=== PATIENT | male | born 1940 | race African-American/Black ===

== ENCOUNTER → 2018-03-30 | Outpatient (CLI) | payer OTHER, MEDICARE ==
[2018-03-30] MEDS: LIDOCAINE WITH 8.4% SOD BICARB 3 ML DISP.SYRIN. INJ (14:00)
[2018-03-30] MEDS: IOHEXOL 180 MG/ML 10 ML VIAL. IT (14:00)
== END | disposition home or self-care (01) ==
LOC: RAD 13:20
DX: M47.896 Other spondylosis, lumbar region (principal); N40.0 Benign prostatic hyperplasia without lower urinary tract symptoms; M53.3 Sacrococcygeal disorders, not elsewhere classified; M12.88 Other specific arthropathies, not elsewhere classified, other specified site; M48.061 Spinal stenosis, lumbar region without neurogenic claudication
CPT/HCPCS: 72132; 72265; Q9965

== ENCOUNTER → 2018-05-03 | Outpatient (CLI) | payer MEDICARE, OTHER ==
[2018-03-30 15:43] VITALS: BP 137/69
[~2018-05-03] MED LIST: ASPI81TA50 PO; CALC1TAB75 PO; CHOL10003 PO; FINA5TAB4 PO; LIPITOR80 MG PO; OMEG1CAP27 PO; OMEP20CA9 PO; RAMI5CAP PO; SIMV40TA3 PO; UBID100C26 PO; VITA1TAB19 PO
--- NOTE | 2018-05-03 18:51 | PAIN ---
DATE OF SERVICE: 05/03/2018 CHIEF COMPLAINT: Low back and right lower extremity pain. HISTORY OF PRESENT ILLNESS: The patient is a 78-year-old male who presents with history of pain for about 6 months. No specific injury or action that he is aware of and pain radiating to the right lower extremity, mostly in the lateral aspect of the thigh, anterior thigh, lateral lower leg as well and radiating from the hip into the lower leg. The patient reports it is shooting, constant, sharp, radiating into the right leg, intermittent in intensity, worse with activity, worse with standing, walking, changing positions, better with sitting or lying down, but awakens him about 4 times at night, especially if he lays on his right side. The patient reports it does not affect his bowel or bladder control, but can affect his ability to walk with some minor weakness, but again very minor on the right side. The patient has not had any current physical therapies, any current other treatments. He has had some exercise and therapy done in 2016. He is doing the exercises currently, but it is not helping much. The patient reports he is taking ibuprofen, also Tylenol and muscle relaxers, which seemed to help, but only to temporary extent, maybe 2-3 hours. The patient has had no other treatments at this time. The patient did have an MRI scan of the lumbar spine dated 03/30/2018 showing L4-L5, broad-based posterior disk bulging with mild posterior ligamentous thickening with central spinal canal well preserved, minimal inferior foraminal narrowing bilaterally. L5-S1 shows laminectomy defect on the right. Portion of right facet has been removed with no significant posterior disk bulge, protrusion. Central spinal canal and L5-S1 neural foramina are well maintained as well. Right S1 nerve root sleeve abnormal, dilated proximally. Right S1 nerve root is smaller than the left and displaced laterally with dilating proximal nerve root sleeve. Displacement appears to be related to a non-opacified cystic structure displacing the inferior aspect of the opacified right S1 nerve root sleeve laterally. The patient rates his disability rate from 0-10, 10 being the worst; is a 0 with family home responsibilities, occupation, self-care and life support activities; 2 with recreation and social activity and 3 with sexual behavior. The patient reports no loss of motor function, but significant fatigability with right lower extremity with activity. PAST MEDICAL HISTORY: Significant for hearing loss with bilateral hearing aids, history of hypertension, coronary artery bypass in the past, acid reflux. Other surgery includes benign tumor in the back and laminectomy in the 1980s. CURRENT MEDICATIONS: Include Coenzyme Q10, finasteride, Lipitor, simvastatin, omeprazole, ramipril, aspirin, fish oil, beta complex, calcium, Tylenol and muscle relaxers and vitamin D3. ALLERGIES: The patient has no known drug allergies. FAMILY HISTORY: Significant for cancer. SOCIAL HISTORY: The patient is retired. He is . He smokes. He drinks alcohol 1-2 times a week, drinks coffee daily. Does not use any illegal or illicit drugs or other recreational drugs or substances and lives locally in [place], [place] and is currently retired. REVIEW OF SYSTEMS: Positive for those items mentioned in history of present illness. All systems reviewed and otherwise negative. It is complete, full and well documented on the patient's chart. PHYSICAL EXAMINATION: VITAL SIGNS: The patient's blood pressure is 142/84, pulse 84, respirations 18, temperature is 98.8 degrees Fahrenheit, height is 73 inches, weight is 207 pounds. GENERAL: The patient is awake, alert, oriented, appropriate, very pleasant demeanor. HEENT: Head shows normocephalic, atraumatic. Extraocular movements are intact, symmetrical. Oral cavity: Mucous membranes moist and pink. Dentition is intact. NECK: Shows anterior throat supple without palpable lymphadenopathy noted. Swallow reflex is symmetrical. CHEST: Shows normal with inspection. Breath sounds clear to auscultation bilaterally. HEART: Shows S1, S2 clear. No murmurs auscultated. CHEST: Shows a well-healed surgical scar. ABDOMEN: Soft, nontender, nondistended. No palpable organomegaly is noted. No rebound or guarding demonstrated. BACK: Shows spine grossly in the midline. Normal appearing thoracic kyphosis and lumbar lordotic curvature. Lumbar paraspinous musculature shows symmetrical on inspection with some flattening of the lumbar lordotic curvature. A well-healed surgical scar again noted. The patient has good rotational motion of lumbar spine, both laterally as well as extension and flexion without significant difficulty. No tenderness over the sacrum or sacroiliac regions. LOWER EXTREMITIES: Show deep tendon reflexes at 1+ in the patellar and tendo calcaneus tendons. Motor exam is 5/5 with dorsiflexion, extension, quadriceps and hamstring flexion equal and symmetrical. Peripheral pulses are 1+ posterior tibia. No peripheral edema is noted. The patient's straight leg raise noted to be positive on the right about 40 degrees. Left side is negative. Gaenslen's and Tyrel's maneuvers are negative bilaterally. The patient is able to stand on his toes without significant difficulty or loss of balance, walks with a normal appearing gait, not using any assistive devices to ambulate on his visit today. SKIN: Shows warm and dry, good turgor. No edema. No sores, rashes, or bruises and scars as noted. IMPRESSION: 1. This is a 78-year-old male with approximate 6-month history of increasing pain, low back, right lower extremity in a radicular fashion. 2. MRI scan of lumbar spine as noted. 3. History of coronary artery disease. 4. Hypertension. 5. Hearing loss. PLAN: Options were discussed with the patient including conservative medical management, physical therapy, interventional technique. He would like to pursue interventional techniques. We discussed a transforaminal injection on the right at L4-L5. The patient is interested in pursuing this. We used anatomical models to describe the procedure and risks were discussed. However, the patient has a slight fever this morning and he feels he is getting through a cold, which he would like to give a few more days and we will wait until this is approved afebrile and plan on a right L4-L5 transforaminal injection at that time later this week. The patient understands and agrees, will follow up in approximately 3 days unless severe or gets worse. He will contact the office if that occurs. LIZ TAI MD DR: PAULA/kimberly JOB#: [id number] / [id number] [facility] CenterJazmín GE
== END | disposition home or self-care (01) ==
LOC: PNCL 08:19
PROVIDERS: ATTEND Anesthesiology
DX: M79.605 Pain in left leg (principal); M54.5 Low back pain; I10 Essential (primary) hypertension; H91.93 Unspecified hearing loss, bilateral; Z95.1 Presence of aortocoronary bypass graft
CPT/HCPCS: G0463

== ENCOUNTER → 2018-06-30 | Outpatient (CLI) | payer MEDICARE, OTHER ==
[2018-03-30 15:43] VITALS: BP 137/69
[~2018-06-30] MED LIST changes: +BUPIVACAINE MPF 0.25% 30 ML VIAL. ONE; +IOHEXOL 180 MG/ML 10 ML VIAL. ONE; +LIDOCAINE 1% PF 2 ML VIAL. ONE; -RAMI5CAP PO; +RAMI5CAP50 PO; +methylPREDNISolone ACETATE 80 MG/ML VIAL. ONE
--- NOTE | 2018-06-30 20:38 | PAIN ---
DATE OF SERVICE: 06/30/2018 DIAGNOSES: 1. Lumbar radiculopathy with lumbar degenerative disk disease. 2. Post-lumbar laminectomy syndrome. HISTORY OF PRESENT ILLNESS: The patient is a 78-year-old male who returns for followup status post transforaminal injection on the right L4-L5 x 1. The patient reports about 100% improvement for the first month, now the pain is returning, but only in the upper part of his right leg, is not going down the entire leg as it was. The patient reports otherwise he has been increasing his activity with greater ease and comfort, sleeping better, standing for longer periods, walking greater distances, doing household activities as well as working activities with much greater ease and comfort and traveling without as much difficulty. The patient reports his pain is now in the right lower extremity, radiating to the right lateral thigh, lateral medial thigh, medial knee on the right side, but not in the lower leg below the knee. The patient reports pain is 9 on a scale of 10 at its worst, 7 on average, 4 at its least and is 4 today. The patient reports it is cramping, aching, sharp, radiating; again worse with activity, standing, walking, changing positions but only in the upper part of the leg, it is not in the entire leg as it was previously. The patient reports no new motor or sensory deficits, no new bowel or bladder incontinence or other complaints. PHYSICAL EXAMINATION: VITAL SIGNS: The patient's blood pressure is 148/74, pulse 67, respirations 16, temperature 97.6 degrees Fahrenheit, height is 6 feet 1 inch, weight is 208 pounds. GENERAL: The patient is awake, alert, oriented, appropriate, very pleasant demeanor. HEENT: Head is normocephalic, atraumatic. Extraocular movements intact and symmetrical. Oral cavity: Mucous membranes moist and pink. Dentition is intact. NECK: Shows anterior throat supple without palpable lymphadenopathy noted. Swallow reflex symmetrical. CHEST: Shows normal on inspection. Breath sounds clear to auscultation bilaterally. HEART: Shows S1, S2 clear. No murmurs auscultated. ABDOMEN: Soft, nontender, nondistended. No palpable organomegaly. There is no rebound or guarding demonstrated. BACK: Shows spine grossly in the midline. Normal appearing thoracic kyphosis and some minor flattening of lumbar lordotic curvature. Well-healed surgical scar noted. Lumbar paraspinous muscle shows symmetrical on inspection, with palpation shows some moderate tenderness but only diffusely bilaterally without radiation. EXTREMITIES: The patient's lower extremities show deep tendon reflexes 1+ in the patellar and tendo-calcaneus tendons. Motor exam is strong with 5/5 dorsiflexion, extension, quadriceps and hamstring flexion symmetrical. Peripheral pulses are 1+ posterior tibia. No peripheral edema is noted bilaterally. Options were discussed with the patient. The patient's old chart was reviewed as his current medication regimen updated. Current review of systems updated today as well. We will proceed with a second in a series of lumbar transforaminal injection on the right L4-L5 using fluoroscopic guidance. Risks were again discussed including, but not limited to bleeding, infection, possibility of epidural hematoma, subsequent neurological compromise, dural puncture, headaches, spinal cord and/or nerve damage, side effects of steroid medication, potential injection of the vertebral artery at that level and permanent ischemic damage as well as poor results regarding pain control. The patient understands and wished to proceed. The patient will return to clinic in approximately 2 weeks for followup; was counseled as to return appointment, activity level and side effects to be aware of. DIAGNOSIS: Lumbar radiculopathy with lumbar degenerative disk disease and post-lumbar laminectomy syndrome. PROCEDURE: Right-sided L4-L5 transforaminal injection using C-arm fluoroscopic guidance under sterile prep and drape using local anesthetic. MEDICATION INJECTED: Total of 2 mL of 0.25% bupivacaine, 80 mg Depo-Medrol and 1.5 mL of Isovue for contrast. CONDITION AT DISCHARGE: Stable. The patient tolerated the procedure well, had no complications. LIZ TAI MD DR: PAULA/kimberly JOB#: [id number] / [id number]
== END | disposition home or self-care (01) ==
LOC: PNCL 08:07
PROVIDERS: ATTEND Anesthesiology
DX: M51.16 Intervertebral disc disorders with radiculopathy, lumbar region (principal); M96.1 Postlaminectomy syndrome, not elsewhere classified
CPT/HCPCS: 64483; J1040; J3490; Q9965

== ENCOUNTER → 2018-07-13 | Outpatient (CLI) | payer MEDICARE, OTHER ==
[2018-03-30 15:43] VITALS: BP 137/69
[~2018-07-13] MED LIST changes: +BUPIVACAINE MPF 0.25% 10 ML VIAL. ONE; -BUPIVACAINE MPF 0.25% 30 ML VIAL. ONE; -LIDOCAINE 1% PF 2 ML VIAL. ONE
--- NOTE | 2018-07-13 23:11 | PAIN ---
DATE OF SERVICE: 07/13/2018 PROGRESS NOTE FOR PAIN CLINIC DIAGNOSIS: Lumbar radiculopathy with lumbar degenerative disk disease and post-lumbar laminectomy syndrome. HISTORY OF PRESENT ILLNESS: The patient is a 78-year-old male who returns for followup status post right L4-L5 transforaminal injections x 2. The patient reports the initial one was very good, about 100% improvement for about a month, last one was only about 50% improvement and now down to about 25% improvement in the right leg, not lasting as long as the initial, worse with walking, standing and changing positions, awakens him from night when he lies on his right side with a tingling sensation, mainly in the lateral anterior thigh on the right. The patient reports no new motor or sensory deficits, no new bowel or bladder incontinence or other complaints. Rates his pain as a 9 on a scale of 10 at its worst, 6 on average, 4 at its least and is a 4 today. Describes it as stabbing, tingling, radiating, shooting, again worse at night and with weightbearing. PHYSICAL EXAMINATION: VITAL SIGNS: The patient's blood pressure is 140/77, pulse 59, respirations are 16, temperature 97.4 degrees Fahrenheit. Height is 6 feet 1 inch, weight is 210 pounds. GENERAL: The patient is awake, alert, oriented, appropriate, very pleasant demeanor. HEENT: Head shows normocephalic, atraumatic. Extraocular movements are intact and symmetrical. Oral cavity: Mucous membranes are moist and pink. Dentition is intact. NECK: Shows anterior throat supple without palpable lymphadenopathy noted. Swallow reflex is symmetrical. CHEST: Shows normal on inspection. Breath sounds are clear to auscultation bilaterally. HEART: Shows S1, S2 clear. No murmurs auscultated. ABDOMEN: Soft, nontender, nondistended. No palpable organomegaly is noted. No rebound or guarding demonstrated. BACK: Shows spine grossly in the midline. Normal appearing thoracic kyphosis and some minor flattening of lumbar lordotic curvature with well-healed surgical scar noted in the lumbar distribution. Lumbar paraspinous muscle shows symmetrical on inspection, on palpation shows some moderate tenderness diffusely, more on the right than the left, but only diffusely without radiation. No tenderness with palpation of the sacrum or sacroiliac regions. The patient has good rotational motion of lumbar spine both laterally as well as extension and flexion without difficulty. EXTREMITIES: Lower extremities show deep tendon reflexes 1+ in the patellar and tendo-calcaneus tendons. Motor exam is strong with 5/5 dorsiflexion, extension, quadriceps and hamstring flexion and symmetrical. Peripheral pulses are 1+ posterior tibia. No peripheral edema is noted bilaterally. Options were discussed with the patient. The patient's old chart was reviewed as his current medication regimen updated. Current review of systems updated today as well. We will proceed with a third in the series of right-sided L4-L5 transforaminal injection with fluoroscopic guidance. Risks were again discussed including, but not limited to bleeding, infection, possibility of epidural hematoma, subsequent neurologic compromise, dural puncture, headaches, spinal cord and/or nerve damage, potential injection of the vertebral artery at that level and permanent ischemic damage as well as poor results regarding pain control and side effects of steroid medication. The patient understands and wished to proceed. The patient will return to the clinic in approximately 2 weeks for followup, was counseled on return appointment, activity level and side effects to be aware of. DIAGNOSIS: Lumbar radiculopathy with lumbar degenerative disk disease and post-lumbar laminectomy syndrome. PROCEDURE: Lumbar transforaminal injection at L4-L5 on the right using C-arm fluoroscopic guidance under sterile prep and drape using local anesthetic. MEDICATION INJECTED: A total of 80 mg Depo-Medrol plus 2 mL of 0.25% bupivacaine and 1.5 mL of Isovue for contrast without uptake on digital subtraction films. CONDITION AT DISCHARGE: Stable. The patient tolerated the procedure well, had no complications. LIZ TAI MD DR: PAULA/kimberly JOB#: [id number] / [id number]
== END | disposition home or self-care (01) ==
LOC: PNCL 10:37
PROVIDERS: ATTEND Anesthesiology
DX: M51.16 Intervertebral disc disorders with radiculopathy, lumbar region (principal); Z79.899 Other long term (current) drug therapy; Z79.82 Long term (current) use of aspirin; M96.1 Postlaminectomy syndrome, not elsewhere classified; Z98.890 Other specified postprocedural states
CPT/HCPCS: 64483; J1040; J3490; Q9965

== ENCOUNTER → 2018-10-14 | Outpatient (CLI) | payer MEDICARE, OTHER ==
[2018-03-30 15:43] VITALS: BP 137/69
--- NOTE | 2018-10-14 22:08 | PAIN ---
DATE OF SERVICE: 10/14/2018 PROGRESS NOTE FOR PAIN CLINIC DIAGNOSES: Lumbar radiculopathy with lumbar degenerative disk disease and lumbar post laminectomy syndrome. HISTORY OF PRESENT ILLNESS: The patient is a 78-year-old male who returns for followup status post transforaminal injections x 3, most recently on 07/13/2018. The patient did very well, reports about 50% improvement overall. The pain in his legs is now just in the thigh down into the lower leg. He is increasing his activity, walking, standing, change in positions, doing work activities, household activities, traveling much greater ease and comfort. The patient reports pain now is returning in the right anterior lateral thigh, anterior medial aspect of the right knee, but not below the knee as it was previously. The patient reports it is a 9 on a scale of 10 at its worst, 7 on average, 3 at its least and is a 3 today. The patient reports it is cramping, sharp, radiating, worse with standing, walking, changing positions, but not at all times. The patient reports it is awakening him from sleep about 2-3 times at night in the past month or so. Prior to that, he was doing very well. The patient reports no new motor or sensory deficits, no bowel or bladder incontinence or other complaints. PHYSICAL EXAMINATION: VITAL SIGNS: The patient's blood pressure is 149/67, pulse 61, respirations are 18, temperature is 97.6 degrees Fahrenheit, height is 6 feet 1 inch, weight is 217 pounds. GENERAL: The patient is awake, alert, oriented, appropriate, very pleasant demeanor. HEENT: Head is normocephalic, atraumatic. Extraocular movements intact and symmetrical. Oral cavity: Mucous membranes moist and pink. Dentition is intact. NECK: Shows anterior throat supple without palpable lymphadenopathy noted. Swallow reflex symmetrical. CHEST: Shows normal with inspection. Breath sounds clear to auscultation bilaterally. HEART: Shows S1, S2 clear. No murmurs auscultated. ABDOMEN: Soft, nontender, nondistended. No palpable organomegaly is noted. No rebound or guarding demonstrated. BACK: Shows spine grossly in the midline. Normal appearing thoracic kyphosis and lumbar lordotic curvature. Lumbar paraspinous muscle shows moderate tenderness with palpation, but symmetrical on inspection without radiation. The patient has good rotational motion of lumbar spine both laterally as well as extension and flexion without difficulty. EXTREMITIES: Lower extremities show deep tendon reflexes 1+ in the patellar and tendo calcaneus tendons. Motor exam is strong with 5/5 dorsiflexion, extension, quadriceps and hamstring flexion equal. Peripheral pulses are 1+ posterior tibia. No peripheral edema is noted bilaterally. Options were discussed with the patient and the patient's fiancee who accompanies him to visit today. Old records were reviewed and the patient's review of systems updated, as was his medication list. We will plan on a right L4-L5 transforaminal lumbar injection today with fluoroscopic guidance. Risks were again discussed including, but not limited to, bleeding, infection, possibility of epidural hematoma and subsequent neurological compromise, dural puncture headache, spinal cord and/or nerve damage, side effects of steroid medication, exposure to fluoroscopy, potential injection of the vertebral artery at that level and permanent ischemic damage as well as poor results regarding pain control. The patient understands and wished to proceed. The patient will return to clinic in approximately 2 weeks for followup, was counseled on return appointment, activity level and side effects to be aware of. DIAGNOSIS: Lumbar radiculopathy with lumbar degenerative disk disease, post lumbar laminectomy syndrome. PROCEDURE: Lumbar L4-L5 right-sided transforaminal epidural injection using C-arm fluoroscopic guidance under sterile prep and drape using local anesthetic. MEDICATION INJECTED: A total of 80 mg Depo-Medrol plus 2 mL of 0.25% bupivacaine after negative aspiration and 1.5 mL of Isovue for contrast with good spread medially into the epidural space as well as laterally along the nerve root with no washout on digital subtraction. CONDITION AT DISCHARGE: Stable. The patient tolerated procedure well, had no complications. LIZ TAI MD DR: PAULA/kimberly JOB#: [id number] / [id number]
== END ==
LOC: PNCL 13:06
PROVIDERS: ATTEND Anesthesiology
DX: M51.16 Intervertebral disc disorders with radiculopathy, lumbar region (principal); M96.1 Postlaminectomy syndrome, not elsewhere classified
CPT/HCPCS: 64483; J1040; J3490; Q9965